=== PATIENT | male | born 1985 | race Caucasian/White ===

== ENCOUNTER 2017-10-05 12:31 | Inpatient (IN) | payer OTHER ==
[~2017-10-05] VITALS: Ht 182.9 cm; Wt 84.2 kg
[~2017-10-05 12:31] MED LIST: NO HOME MED; QUETIAPINE FUMA25 MG PO; SERTRALINE HCL25 MG PO
[2017-10-05 14:37] LABS: APPEARANCE CLEAR ((CLEAR)); BILIRUBIN NEGATIVE; BLOOD NEGATIVE; COLOR YELLOW ((YELLOW)); GLUCOSE (STRIP) NEGATIVE; KETONES NEGATIVE; LEUKOCYTES NEGATIVE; NITRITE NEGATIVE; PROTEIN (STRIP) NEGATIVE; SPECIFIC GRAVITY 1.028 (1.000-1.030)
[2017-10-05 14:46] LABS: HEMATOCRIT 42.3 % (38.0-50.0); HEMOGLOBIN 14.9 G/DL (12.5-16.6); MCH 32.2 PG (29.0-34.0); MCHC 35.2 G/DL (30.0-36.0); MCV 91.4 FL (86-99); PLATELET COUNT 187 K/uL (156-360); RBC DIS.WIDTH-CV 11.8 % (11.8-14.6); RBC DIS.WIDTH-SD 39.6 % (39-53); RED BLOOD COUNT 4.63 M/uL (4.00-5.50)
[2017-10-05 14:55] LABS: ALBUMIN 4.6 g/dL (3.2-4.8)
[2017-10-05 14:56] LABS: CHLORIDE 105 mEq/L (99-109); POTASSIUM 3.9 mEq/L (3.7-5.4); SODIUM 144 mEq/L (136-147)
[2017-10-05 14:58] LABS: GLUCOSE 83 mg/dL (70-99); TOTAL PROTEIN 7.6 g/dL (6.4-8.3)
[2017-10-05 15:00] LABS: TOTAL BILIRUBIN 0.6 mg/dL (0.0-1.0)
[2017-10-05 15:01] LABS: ALKALINE PHOSPHATASE 101 IU/L (3-129); SERUM ETHYL ALCOHOL < 10 mg/dL
[2017-10-05 15:02] LABS: AMPHETAMINE NEGATIVE (500 ng/mL); BARBITURATES NEGATIVE (200 ng/mL); BENZODIAZEPINES NEGATIVE (150 ng/mL); BUPRENORPHINE NEGATIVE (10 ng/mL); COCAINE NEGATIVE (150 ng/mL); METHADONE NEGATIVE (200 ng/mL); METHAMPHETAMINE NEGATIVE (500 ng/mL); OPIATES (MORPHINE) NEGATIVE (100 ng/mL); OXYCODONE NEGATIVE (100 ng/mL); PHENCYCLIDINE NEGATIVE (25 ng/mL); PROPOXYPHENE NEGATIVE (300 ng/mL); THC CANNABINOIDS PRESUMPTIVE POSITIVE (50 ng/mL); TRICYCLIC ANTIDEPRESSANTS NEGATIVE (300 ng/mL)
[2017-10-05 15:02] LABS: CREATININE 0.8 mg/dL (0.6-1.3); GFR ESTIMATE (CALCULATED) > 59 mL/min/ (58.99-99999)
[2017-10-05 15:03] LABS: AST (GOT) 19 IU/L (2-34); UREA NITROGEN (BUN) 19 mg/dL (9-23)
[2017-10-05 15:05] LABS: ALT (GPT) 23 IU/L (3-49)
[2017-10-05 17:23] VITALS: BP 132/59
[2017-10-05 17:30] VITALS: BP 132/59
[2017-10-06 08:03] VITALS: BP 115/56
[2017-10-06 16:31] VITALS: BP 115/59
[2017-10-07 08:03] VITALS: BP 112/66
[2017-10-07 14:40] VITALS: BP 112/53
[2017-10-08 07:32] VITALS: BP 121/68
[2017-10-08 15:14] VITALS: BP 111/59
[2017-10-09 07:39] VITALS: BP 121/70
[2017-10-09 15:14] VITALS: BP 90/54
[2017-10-10 08:08] VITALS: BP 110/68
[2017-10-10] MEDS ORDERED: DIVALPROEX SOD500 M1 PO (08:58)
[2017-10-10] MEDS ORDERED: ABILIFY20 MG PO (08:58)
== END 2017-10-10 10:19 | disposition home or self-care (01) | DRG 885 ==
LOC: EME 12:31 → 1WEST 15:27 → EDOF 15:27 → ENRESERV 17:00 → 1WEST 17:21
PROVIDERS: Emergency Medicine
DX: F31.64 Bipolar disorder, current episode mixed, severe, with psychotic features (principal); R45.851 Suicidal ideations; F17.200 Nicotine dependence, unspecified, uncomplicated; Z65.3 Problems related to other legal circumstances
CPT/HCPCS: 80053; 80164; 81003; 84999; 85027; 90839; 97150 GO; 97165 GO; 99281; 99285; G0480

== ENCOUNTER 2017-12-28 08:13 | Emergency (ER) | payer OTHER ==
[~2017-12-28] VITALS: Ht 190.5 cm; Wt 107.0 kg
[~2017-12-28 08:13] MED LIST changes: +ABILIFY20 MG PO; +DIVALPROEX SOD500 M1 PO
[2017-12-28] MEDS ORDERED: CARBAMAZEPINE200 MG PO (08:37)
[2017-12-28] MEDS ORDERED: TRAZODONE HCL50 MG PO (08:38)
[2017-12-28 09:39] LABS: HEMATOCRIT 40.1 % (38.0-50.0); HEMOGLOBIN 14.1 G/DL (12.5-16.6); MCH 32.3 PG (29.0-34.0); MCHC 35.2 G/DL (30.0-36.0); MCV 91.8 FL (86-99); PLATELET COUNT 209 K/uL (156-360); RBC DIS.WIDTH-CV 12.1 % (11.8-14.6); RBC DIS.WIDTH-SD 40.5 % (39-53); RED BLOOD COUNT 4.37 M/uL (4.00-5.50); WHITE BLOOD COUNT 8.1 K/uL (4.1-10.2)
[2017-12-28 09:43] LABS: ALBUMIN 4.4 g/dL (3.2-4.8); CHLORIDE 107 mEq/L (99-109); POTASSIUM 4.5 mEq/L (3.7-5.4); SODIUM 141 mEq/L (136-147)
[2017-12-28 09:45] LABS: GLUCOSE 99 mg/dL (70-99)
[2017-12-28 09:46] LABS: TOTAL PROTEIN 7.3 g/dL (6.4-8.3)
[2017-12-28 09:47] LABS: APPEARANCE CLEAR ((CLEAR)); BILIRUBIN NEGATIVE; BLOOD NEGATIVE; COLOR YELLOW ((YELLOW)); GLUCOSE (STRIP) NEGATIVE; KETONES NEGATIVE; LEUKOCYTES NEGATIVE; NITRITE NEGATIVE; PROTEIN (STRIP) NEGATIVE; SPECIFIC GRAVITY 1.021 (1.000-1.030); UROBILINOGEN 0.2 MG/DL (0.2-1.0)
[2017-12-28 09:47] LABS: TOTAL BILIRUBIN 0.4 mg/dL (0.0-1.0)
[2017-12-28 09:48] LABS: SERUM ETHYL ALCOHOL < 10 mg/dL
[2017-12-28 09:49] LABS: ALKALINE PHOSPHATASE 98 IU/L (3-129); GFR ESTIMATE (CALCULATED) > 59 mL/min/ (58.99-99999)
[2017-12-28 09:50] LABS: UREA NITROGEN (BUN) 10 mg/dL (9-23)
[2017-12-28 09:51] LABS: AST (GOT) 17 IU/L (2-34)
[2017-12-28 09:52] LABS: ALT (GPT) 21 IU/L (3-49)
[2017-12-28 10:00] LABS: AMPHETAMINE NEGATIVE (500 ng/mL); BARBITURATES NEGATIVE (200 ng/mL); BENZODIAZEPINES NEGATIVE (150 ng/mL); BUPRENORPHINE NEGATIVE (10 ng/mL); COCAINE NEGATIVE (150 ng/mL); METHADONE NEGATIVE (200 ng/mL); METHAMPHETAMINE NEGATIVE (500 ng/mL); OPIATES (MORPHINE) NEGATIVE (100 ng/mL); OXYCODONE NEGATIVE (100 ng/mL); PHENCYCLIDINE NEGATIVE (25 ng/mL); PROPOXYPHENE NEGATIVE (300 ng/mL); THC CANNABINOIDS PRESUMPTIVE POSITIVE (50 ng/mL); TRICYCLIC ANTIDEPRESSANTS NEGATIVE (300 ng/mL)
[2017-12-28 11:38] VITALS: BP 125/62
== END 2017-12-28 11:56 | disposition home or self-care (01) ==
LOC: EME 08:13
PROVIDERS: Emergency Medicine
DX: F19.10 Other psychoactive substance abuse, uncomplicated (principal); F31.32 Bipolar disorder, current episode depressed, moderate; F12.20 Cannabis dependence, uncomplicated; F41.9 Anxiety disorder, unspecified; F17.200 Nicotine dependence, unspecified, uncomplicated
CPT/HCPCS: 80053; 81003; 84999; 85027; 90839; 99281; 99285; G0480